=== PATIENT | female | born 1995 | race Two or more races ===

== ENCOUNTER 2020-04-01 12:26 | Emergency (ER) | payer OTHER, SELFPAY ==
[2020-04-01 12:28] VITALS: BP 133/58; PULSE 92; RESP 16; TEMP 36.7; O2SAT 96; BMI 25.2
--- NOTE | 2020-04-01 12:40 | [facility].EDALLER ---
ED Disposition Clinical Impression: Allergic reaction Qualifiers: Encounter type: initial encounter Qualified Code(s): T78.40XA - Allergy, unspecified, initial encounter Disposition: Home, Self-Care Condition on Discharge: Good Referrals: PCP,No [Primary Care Provider] - - Critical Care Critical Care Time: No Attestation: On 04/01/20, the high probability of a clinically significant, sudden or life threatening deterioration of the following system(s) required my full and direct attention, intervention and personal management. The time I documented below is in addition to time spent performing reported procedures but includes the following listed in this critical care notation. Medical Decision Making - Medical Records Medical records reviewed: Yes: I reviewed the patient's medical records. - Cory Inquiry Pt receiving controlled substance: No Vital Signs: 04/01/20 12:28 Temperature 98.0 F Temperature Source Oral Pulse Rate [Left Radial] 92 H Respiratory Rate 16 Blood Pressure [Left Arm] 133/58 L Blood Pressure Mean [Left Arm] 83 Blood Pressure Source [Left Arm] Automatic Cuff Blood Pressure Position [Left Arm] Sitting 02 Sat by Pulse Oximetry 96 Oxygen Delivery Method Room Air Orders (Tests/Meds): ED MEDICATIONS Discontinued Medications Generic Name Dose Route Start Last Admin Trade Name Freq PRN Reason Stop Dose Admin Diphenhydramine HCl 50 mg 04/01/20 12:37 Diphenhydramine 50mg/Ml Vial IM 04/01/20 12:38 ONCE ONE Methylprednisolone Sodium Succinate 125 mg 04/01/20 12:37 Methylprednisolone Sod Succ 125mg Vial IM 04/01/20 12:38 ONCE ONE Allergic React/Insect Bite HPI - General Chief complaint: Allergic Reaction Stated complaint: allergic reaction Time Seen by Provider: 04/01/20 12:35 Mode of Arrival - ED Triage: Ambulatory Source of Information: Patient Limitations: No Limitations - History of Present Illness HPI narrative: This is a 24-year-old female that presents with 1 hour history of coughing and throat itching . Patient denies any new use of medications or detergents or topical substances. She does report being around a cat which she reports allergies to dander. She denies any new foods. Symptoms seem to be improved and I have nearly resolved at this time. No medications taken prior to presentation for symptoms. Symptoms were moderate in intensity without modifying factors prior to arrival. No skin eruptions or hives. No other complaints [facility] History - Hepatitis A Screen Drug use history?: No High risk sexual behaviors?: No History of sexually transmitted infection?: No Currently employed?: No Childcare worker?: No Do you have indoor plumbing?: Yes Do you have electricity?: Yes Attestation statement:: This patient has been screened for Hepatitis A risk factors. I have reviewed the patient's past medical history: Yes Medical History: Denies:: Diabetes Mellitus Type 1, Diabetes Mellitus Type 2 - Social History Alcohol Intake: never Occupational Status: other ROS Obtained: Yes All systems reviewed & no additional complaints Physical Exam - General General appearance: alert, in no apparent distress - Head Head exam: atraumatic, normocephalic - Eye Eye exam: Present: normal appearance, PERRL - ENT ENT exam: Present: normal exam, normal oropharynx, mucous membranes moist - Neck Neck exam: Present: normal inspection, full ROM - Chest Chest inspection: Present: normal inspection, symmetric chest wall rise - Respiratory Respiratory exam: Present: normal lung sounds bilaterally. Absent: respiratory distress, accessory muscle use, prolonged expiratory phase - Cardiovascular Cardiovascular exam: Present: regular rate, normal rhythm, normal heart sounds - Abdominal Exam Abdominal exam: Present: soft, normal bowel sounds. Absent: distention, tenderness, guarding - Neurological Exam Neurological exam: P
[2020-04-01 13:05] VITALS: BP 128/73; PULSE 71; RESP 18; TEMP 36.7; O2SAT 100
== END 2020-04-01 13:05 | disposition home or self-care (01) ==
PROVIDERS: Emergency Provider Emergency Medicine; PCP Family Medicine
DX: J30.81 Allergic rhinitis due to animal (cat) (dog) hair and dander (principal)
CPT/HCPCS: 96372; 99281